=== PATIENT | female | born 1970 | race Caucasian/White ===

== ENCOUNTER 2016-07-24 07:30 | Day surgery (SDC) | payer OTHER ==
[~2016-07-24] VITALS: Ht 160 cm; Wt 89.4 kg
[~2016-07-24 07:30] MED LIST: BACTRIM DS 8001 TAB PO; ELMIRON PO; LIPITOR 40MG TA40 MG PO; NEURONTIN100 MG/CAP PO; ZYRTEC 10MG10 MG PO; [UNRECOGNIZED DRUG - OTHER] PO
[2016-07-24 08:13] VITALS: BP 127/80; PULSE 89; TEMP 97.4
[2016-07-24] MEDS ORDERED: CIPRO 500MG TA500 MG PO (08:22)
[2016-07-24] MEDS ORDERED: LEVSIN0.125 M1 PO (08:22)
[2016-07-24] MEDS ORDERED: FLOMAX 0.40.4 MG/CAP PO (08:23)
[2016-07-24] MEDS ORDERED: MASON NATURAL2000 IU PO (08:23)
[2016-07-24] MEDS ORDERED: LIPITOR 10MG10 MG PO (08:23)
[2016-07-24] MEDS ORDERED: AFRIN 15 ML15 ML NS (08:24)
[2016-07-24] MEDS ORDERED: NORCO 325 MG-51 TAB PO (08:25)
[2016-07-24 10:45] VITALS: BP 114/75; PULSE 69; TEMP 97.4
[2016-07-24 11:00] VITALS: BP 119/71; PULSE 67
[2016-07-24 11:15] VITALS: BP 107/56; PULSE 69
== END 2016-07-24 11:40 | disposition home or self-care (01) ==
LOC: SDCO 07:30
DX: R10.11 Right upper quadrant pain (principal); E78.5 Hyperlipidemia, unspecified; G47.30 Sleep apnea, unspecified; Z86.14 Personal history of Methicillin resistant Staphylococcus aureus infection; Z87.891 Personal history of nicotine dependence
CPT/HCPCS: J0690; J1100; J1885; J2405; J2704; J3010; J7120; Q9967

== ENCOUNTER → 2019-01-27 | Outpatient (CLI) | payer OTHER ==
[~2019-01-27] MED LIST changes: +AFRIN 15 ML15 ML NS; +CIPRO 500MG TA500 MG PO; +FLOMAX 0.40.4 MG/CAP PO; +LEVSIN0.125 M1 PO; +LIPITOR 10MG10 MG PO; +MASON NATURAL2000 IU PO; +NORCO 325 MG-51 TAB PO
== END ==
LOC: MHCPAIN 08:07
DX: G89.29 Other chronic pain (principal); M47.817 Spondylosis without myelopathy or radiculopathy, lumbosacral region; M54.16 Radiculopathy, lumbar region; M53.3 Sacrococcygeal disorders, not elsewhere classified
CPT/HCPCS: G0463

== ENCOUNTER → 2019-03-02 | Outpatient (CLI) | payer OTHER | LOC: MHCPAIN 09:36 | DX: G89.29 Other chronic pain (principal); M54.16 Radiculopathy, lumbar region; M53.3 Sacrococcygeal disorders, not elsewhere classified | CPT/HCPCS: G0463 ==

== ENCOUNTER → 2019-03-25 | Outpatient (CLI) | payer OTHER | LOC: MHCPAIN 07:51 | DX: M47.817 Spondylosis without myelopathy or radiculopathy, lumbosacral region (principal); M54.16 Radiculopathy, lumbar region | CPT/HCPCS: J1100; Q9967 ==

== ENCOUNTER → 2019-04-07 | Outpatient (CLI) | payer OTHER | LOC: MHCPAIN 14:51 | DX: G89.29 Other chronic pain (principal); M47.817 Spondylosis without myelopathy or radiculopathy, lumbosacral region; M54.16 Radiculopathy, lumbar region; M53.3 Sacrococcygeal disorders, not elsewhere classified | CPT/HCPCS: G0463 ==

== ENCOUNTER → 2019-04-15 | Outpatient (CLI) | payer OTHER | LOC: MHCPAIN 08:05 | DX: M47.817 Spondylosis without myelopathy or radiculopathy, lumbosacral region (principal); M54.16 Radiculopathy, lumbar region | CPT/HCPCS: J1100; Q9967 ==

== ENCOUNTER → 2019-05-05 | Outpatient (CLI) | payer OTHER | LOC: MHCPAIN 14:41 | DX: G89.29 Other chronic pain (principal); M47.817 Spondylosis without myelopathy or radiculopathy, lumbosacral region; M54.16 Radiculopathy, lumbar region; M53.3 Sacrococcygeal disorders, not elsewhere classified | CPT/HCPCS: G0463 ==

== ENCOUNTER → 2019-08-03 | Outpatient (CLI) | payer OTHER | LOC: MHCPAIN 14:48 | DX: M47.817 Spondylosis without myelopathy or radiculopathy, lumbosacral region (principal); M54.16 Radiculopathy, lumbar region | CPT/HCPCS: G0463 ==

== ENCOUNTER → 2019-12-01 | Outpatient (CLI) | payer OTHER | LOC: MHCPAIN 14:21 | DX: M47.817 Spondylosis without myelopathy or radiculopathy, lumbosacral region (principal); M53.3 Sacrococcygeal disorders, not elsewhere classified; M54.5 Low back pain; M54.16 Radiculopathy, lumbar region; G89.29 Other chronic pain | CPT/HCPCS: G0463 ==

== ENCOUNTER → 2019-12-16 | Outpatient (CLI) | payer OTHER | LOC: MHCPAIN 08:59 | DX: M47.818 Spondylosis without myelopathy or radiculopathy, sacral and sacrococcygeal region (principal); M53.3 Sacrococcygeal disorders, not elsewhere classified; G89.29 Other chronic pain | CPT/HCPCS: G0260; J1040; Q9967 ==

== ENCOUNTER → 2020-03-07 | Outpatient (CLI) | payer OTHER | LOC: MHCPAIN 07:58 | DX: M47.817 Spondylosis without myelopathy or radiculopathy, lumbosacral region (principal); M54.5 Low back pain; M54.6 Pain in thoracic spine; M53.3 Sacrococcygeal disorders, not elsewhere classified | CPT/HCPCS: G0463 ==

== ENCOUNTER → 2020-05-23 | Outpatient (CLI) | payer OTHER | LOC: MHCPAIN 09:33 | DX: M53.3 Sacrococcygeal disorders, not elsewhere classified (principal); M54.17 Radiculopathy, lumbosacral region; G89.29 Other chronic pain; M54.5 Low back pain | CPT/HCPCS: G0463 ==

== ENCOUNTER → 2020-06-19 | Outpatient (CLI) | payer OTHER | LOC: MHCPAIN 13:17 | DX: M53.3 Sacrococcygeal disorders, not elsewhere classified (principal); M47.817 Spondylosis without myelopathy or radiculopathy, lumbosacral region; M54.5 Low back pain; G89.29 Other chronic pain | CPT/HCPCS: G0463 ==

== ENCOUNTER → 2020-06-26 | Outpatient (CLI) | payer OTHER | LOC: MHCPAIN 14:44 | DX: M47.817 Spondylosis without myelopathy or radiculopathy, lumbosacral region (principal); M54.5 Low back pain; M53.3 Sacrococcygeal disorders, not elsewhere classified; G89.29 Other chronic pain | CPT/HCPCS: G0463 ==

== ENCOUNTER → 2020-07-10 | Outpatient (CLI) | payer OTHER | LOC: MHCPAIN 13:56 | DX: M47.817 Spondylosis without myelopathy or radiculopathy, lumbosacral region (principal); M54.5 Low back pain; M53.3 Sacrococcygeal disorders, not elsewhere classified | CPT/HCPCS: G0463 ==

== ENCOUNTER → 2020-08-07 | Outpatient (CLI) | payer OTHER | LOC: MHCPAIN 13:35 | DX: M47.817 Spondylosis without myelopathy or radiculopathy, lumbosacral region (principal); M54.5 Low back pain; M53.3 Sacrococcygeal disorders, not elsewhere classified; G89.29 Other chronic pain | CPT/HCPCS: G0463; J1100; J2250; J3010 ==

== ENCOUNTER → 2020-08-10 | Outpatient (CLI) | payer OTHER | LOC: MHCPAIN 09:36 | DX: M47.817 Spondylosis without myelopathy or radiculopathy, lumbosacral region (principal); M54.5 Low back pain | CPT/HCPCS: J1100; J2250; J3010 ==

== ENCOUNTER → 2020-10-03 | Outpatient (CLI) | payer OTHER | LOC: MHCPAIN 07:55 | DX: M47.817 Spondylosis without myelopathy or radiculopathy, lumbosacral region (principal); M53.3 Sacrococcygeal disorders, not elsewhere classified; G89.29 Other chronic pain | CPT/HCPCS: G0463 ==

== ENCOUNTER → 2020-11-23 | Outpatient (CLI) | payer OTHER | LOC: MHCPAIN 07:46 | DX: M47.818 Spondylosis without myelopathy or radiculopathy, sacral and sacrococcygeal region (principal); M53.3 Sacrococcygeal disorders, not elsewhere classified | CPT/HCPCS: G0260; G0463; J1040; Q9967 ==

== ENCOUNTER → 2020-11-30 | Outpatient (CLI) | payer OTHER | LOC: COL.RAD 11-13 09:45 | DX: M47.816 Spondylosis without myelopathy or radiculopathy, lumbar region (principal); M47.817 Spondylosis without myelopathy or radiculopathy, lumbosacral region; M60.88 Other myositis, other site ==

== ENCOUNTER → 2021-03-20 | Outpatient (CLI) | payer OTHER | LOC: MHCPAIN 08:05 | DX: M47.817 Spondylosis without myelopathy or radiculopathy, lumbosacral region (principal); M53.3 Sacrococcygeal disorders, not elsewhere classified; M54.5 Low back pain | CPT/HCPCS: G0463 ==